=== PATIENT | male | born 1980 | race Caucasian/White ===

== ENCOUNTER 2017-02-09 21:23 | Emergency (ER) | payer BC, OTHER ==
[2017-02-09 22:42] VITALS: BP 134/89
--- NOTE | 2017-02-09 23:42 | UC ---
Hand/Wrist HPI - HPI Summary HPI Summary: The patient comes in today for: 1. Right little finger injury: Onset: 10 hours ago. Palliative/provocative: Tapping the end of the finger will make the pain worse. It is "twingy" with tapping. Quality: "twingy" Region: whole of the right little finger. Severity: 2/10 Time: Constant. Associated symptoms: Event: He got his little right finger caught in a chain-like fence today at 1:30 PM while trying to pull a student off the fence. Treatment: None. Previous problems: None. * - History Of Current Complaint Chief Complaint: UCUpperExtremity Stated Complaint: RIGHT HAND INJURY Time Seen by Provider: 02/09/17 22:32 Hx Obtained From: Patient - Allergies/Home Medications Allergies/Adverse Reactions: Allergies Allergy/AdvReac Type Severity Reaction Status Date / Time No Known Allergies Allergy Verified 02/09/17 22:42 Home Medications: Home Medications Cetirizine* [ZyrTEC 10 MG TAB*] 10 mg PO DAILY 02/09/17 [History Confirmed 02/09] Fluticasone NASAL * [Flonase *] 2 spray BOTH NARES DAILY 02/09/17 [History Confirmed 02/09/17] PMH/Surg Hx/FS Hx/Imm Hx Previously Healthy: No - Allergies. Endocrine History Of: Denies: Diabetes, Thyroid Disease, Hyperthyroidism, Hypothyroidism, Dyslipidemia Cardiovascular History Of: Denies: Cardiac Disorders, Hypertension, Pacemaker/ICD, Myocardial Infarction , Congestive Heart Failure, Atrial Fibrillation, Deep Vein Thrombosis, Bleeding Disorders Respiratory History Of: Denies: COPD, Asthma, Bronchitis, Pneumonia, Pulmonary Embolism GI/ History Of: Denies: Gastroesophageal Reflux, Ulcer, Gastrointestinal Bleed, Gall Bladder Disease, Kidney Stones, Diverticulitis, Renal Disease, Urosepsis Neurological History Of: Denies: TIA, CVA, Dementia, Seizures, Migraine Psychological History Of: Denies: Anxiety, Depression, Bipolar Disorder, Schizophrenia, Post Traumatic Stress Disorder Cancer History Of: Denies: Lung Cancer, Colorectal Cancer, Breast Cancer, Prostate Cancer, Cervical Cancer Other History Of: Negative For: HIV, Hepatitis B, Hepatitis C, Anticoagulant Therapy - Surgical History Surgical History: Yes Surgery Procedure, Year, and Place: pilonidal cyst 1999 - Family History Known Family History: Positive: Hypertension Negative: Cardiac Disease, Diabetes - Social History Occupation: Employed Full-time Alcohol Use: Occasionally Substance Use Type: None Smoking Status (MU): Never Smoked Tobacco Review of Systems Constitutional: Negative Skin: Negative Eyes: Negative ENT: Negative Respiratory: Negative Cardiovascular: Negative Gastrointestinal: Negative Genitourinary: Negative Motor: Negative All Other Systems Reviewed And Are Negative: Yes Physical Exam Triage Information Reviewed: Yes Appearance: Well-Appearing, No Pain Distress, Well-Nourished Vital Signs: Initial Vital Signs Temp 98.1 F 02/09/17 22:38 Pulse 89 02/09/17 22:38 Resp 17 02/09/17 22:38 BP 134/89 02/09/17 22:38 Pulse Ox 97 02/09/17 22:38 Vital Signs Reviewed: Yes Eyes: Positive: Conjunctiva Clear. Negative: Discharge ENT: Positive: Hearing grossly normal. Negative: Pharyngeal erythema, Nasal congestion, Nasal drainage Dental: Negative: Gross Decay/Caries @, Dental Fracture @ Neck: Positive: Supple, Nontender, No Lymphadenopathy. Negative: Nuchal Rigidity Respiratory: Positive: Chest non-tender, Lungs clear, No respiratory distress, No accessory muscle use. Negative: Crackles, Wheezing Cardiovascular: Positive: RRR, No Murmur Abdomen Description: Positive: Nontender, No Organomegaly, Soft. Negative: Distended, Guarding Musculoskeletal: Positive: Strength Intact, ROM Intact, No Edema, Other: - No edema or ecchymosis or pain to palpation or loss of range of motion. NOrmal exam. Neurological: Positive: Alert, Muscle Tone Normal Psychological: Positive: Age Appropriate Behavior, Consolable Skin: Negative: rashes, breakdown Diagnostics - Radiology No standard instances Xray Interpretation: No Acute Changes Radiology Interpretation Completed By: ED Physician Hand/Wrist Course/Dx - Differential Dx/Diagnosis Provider Diagnoses: Contusion of the right little finger. Discharge - Discharge Plan Condition: Stable Disposition: HOME Patient Education Materials: Contusion in Adults (ED), Finger Sprain (ED) Referrals: Non Staff,Doctor [Primary Care Provider] - 1 Week (Please follow up with your primary care provider in a week to see how your finger is going and how your blood pressure is doing. If you have any problems or worsening, please be seen sooner by us or the ER.) Additional Instructions: Use [id number] pain medications as needed for finger pain.
--- NOTE | 2017-02-10 08:09 | RAD ---
INDICATION: Right hand injury COMPARISON: None TECHNIQUE: AP, lateral, and oblique views were obtained. FINDINGS: The bony structures, joint spaces, and soft tissues are normal for age. IMPRESSION: NO ACUTE BONY FINDINGS.
== END 2017-02-09 23:50 | disposition home or self-care (01) ==
LOC: UCCORT 21:23
DX: S60.051A Contusion of right little finger without damage to nail, initial encounter (principal); W23.0XXA Caught, crushed, jammed, or pinched between moving objects, initial encounter; Y93.9 Activity, unspecified; Y92.9 Unspecified place or not applicable
CPT/HCPCS: 99211; G0463

== ENCOUNTER 2018-04-26 15:01 | Emergency (ER) | payer BC, OTHER ==
[2018-04-26 16:04] VITALS: BP 156/98
[2018-04-26] MEDS ORDERED: Fluorescein Sod TOPICAL 0.6* 0.6 MG TEST OPHTHALMIC ONE (16:07)
[2018-04-26] MEDS ORDERED: Tetracaine 0.5% OPTH.SOL 4 ML* 1 DROP BTL ONE (16:07)
[2018-04-26] MEDS ORDERED: BSS OPTH.SOL* BTL OPHTHALMIC ONE (16:08)
--- NOTE | 2018-04-26 16:08 | UC ---
Eye Complaint HPI - HPI Summary HPI Summary: Patient slept part of the neck last night his contact in. Patient has clear drainage from his right eye and conjunctiva is injected. No visual deficits no pain. - History of Current Complaint Chief Complaint: UCEye Stated Complaint: RIGHT EYE COMPLAINT Time Seen by Provider: 04/26/18 16:06 Hx Obtained From: Patient Onset/Duration: Sudden Onset, Lasting Days - 1 Pain Intensity: 0 Pain Scale Used: 0-10 Numeric Location of Injury: Conjunctiva Associated Signs And Symptoms: Positive: Drainage (Clear) - Allergies/Home Medications Allergies/Adverse Reactions: Allergies Allergy/AdvReac Type Severity Reaction Status Date / Time No Known Allergies Allergy Verified 04/26/18 16:04 PMH/Surg Hx/FS Hx/Imm Hx Previously Healthy: Yes Other History Of: Negative For: HIV, Hepatitis B, Hepatitis C, Anticoagulant Therapy - Surgical History Surgical History: Yes Surgery Procedure, Year, and Place: pilonidal cyst 1999 - Family History Known Family History: Positive: Hypertension Negative: Cardiac Disease, Diabetes - Social History Occupation: Employed Full-time Lives: With Family Alcohol Use: Occasionally Substance Use Type: None Smoking Status (MU): Never Smoked Tobacco Review of Systems Constitutional: Negative Skin: Negative Eyes: Drainage - right, Eye Redness - right ENT: Negative Respiratory: Negative Cardiovascular: Negative Gastrointestinal: Negative Genitourinary: Negative Motor: Negative Neurovascular: Negative Musculoskeletal: Negative Neurological: Negative Psychological: Negative Is Patient Immunocompromised?: No All Other Systems Reviewed And Are Negative: Yes Physical Exam Triage Information Reviewed: Yes Appearance: Well-Appearing, No Pain Distress, Obese Vital Signs: Initial Vital Signs Temp 98.6 F 04/26/18 15:58 Pulse 98 04/26/18 15:58 Resp 18 04/26/18 15:58 BP 156/98 04/26/18 15:58 Pulse Ox 99 04/26/18 15:58 Vital Signs Reviewed: Yes Eye Exam: Normal - left Eyes: Positive: Conjunctiva Inflamed - right, Discharge - clear-right ENT Exam: Normal ENT: Positive: Normal ENT inspection, Hearing grossly normal, Pharynx normal, TMs normal. Negative: Nasal congestion, Trismus, Muffled voice, Hoarse voice, Dental tenderness, Sinus tenderness Dental Exam: Normal Neck exam: Normal Neck: Positive: Supple, Nontender, No Lymphadenopathy Respiratory Exam: Normal Respiratory: Positive: Chest non-tender, Lungs clear, Normal breath sounds, No respiratory distress, No accessory muscle use Cardiovascular Exam: Normal Cardiovascular: Positive: RRR, No Murmur, Pulses Normal Abdominal Exam: Normal Musculoskeletal Exam: Normal Musculoskeletal: Positive: Strength Intact, ROM Intact, No Edema Neurological Exam: Normal Neurological: Positive: Alert, Muscle Tone Normal Psychological Exam: Normal Skin Exam: Normal Re-Evaluation - Re-Evaluation First Eval Change: Unchanged - right eye stained and examined---no evidence of ulceration Eye Complaint Course/Dx - Course Course Of Treatment: cipro eye drops, no contact lens use until cleared by eye care provider, follow blood pressure with pcp - Differential Dx/Diagnosis Provider Diagnoses: od conjuctivitis, elevated blood pressure without dx of hypertension Discharge - Sign-Out/Discharge Documenting (check all that apply): Patient Departure - Discharge Plan Condition: Stable Disposition: HOME Prescriptions: Ciprofloxacin 0.3% OPTH.KISHOR* [Cipro 0.3% Opth*] 1 drop RIGHT EYE Q2H #1 btl Patient Education Materials: How to Use Eye Drops (ED), Hypertension (ED), Conjunctivitis (ED) Referrals: [facility] [Outside] - 2 Weeks (bp recheck) Harris Guajardo MD [Medical Doctor] - 3 Days (or your eye care provider) JEM Bill [Medical Doctor] - 2 Weeks (bp recheck ) Gavi Holguin MD [Medical Doctor] - 3 Days (or your eye care provider) No Primary Care Phys,NOPCP [Primary Care Provider] - Additional Instructions: no contact lens use until clear by eye care provider - Billing Disposition and Condition Condition: STABLE Disposition: Home
== END 2018-04-26 16:35 | disposition home or self-care (01) ==
LOC: UCCORT 15:01
DX: H10.9 Unspecified conjunctivitis (principal); R03.0 Elevated blood-pressure reading, without diagnosis of hypertension
CPT/HCPCS: 99212; A9270-GY; G0463

== ENCOUNTER 2018-07-15 19:07 | Emergency (ER) | payer BC ==
[2018-07-15 19:46] VITALS: BP 149/82
[2018-07-15] MEDS ORDERED: predniSONE TAB* 20 MG PO ONE (20:15)
[2018-07-15] MEDS ORDERED: Albuterol HFA INHALER* 8 gm MDI INH ONE (20:15)
--- NOTE | 2018-07-15 20:16 | UC ---
Respiratory Complaint HPI - HPI Summary HPI Summary: C/O wheezing with coughing or walking since yesterday. Coughing fits. Started URI sx 3 days ago. No fevers or chills. No headache. - History of Current Complaint Chief Complaint: UCRespiratory Stated Complaint: UPPER RESPIRATORY Time Seen by Provider: 07/15/18 20:00 Hx Obtained From: Patient Onset/Duration: Sudden Onset, Lasting Days - 3, Worse Since - last 2 days. Timing: Constant Severity Initially: Mild Severity Currently: Moderate Pain Intensity: 0 Character: Cough: Productive Aggravating Factors: Deep Breaths, Recumbent Position Alleviating Factors: Nothing Associated Signs And Symptoms: Positive: Wheezing, Nasal Congestion, Hoarseness , Sinus Discomfort. Negative: Fever, Chills Related History: Seasonal Allergies - Allergies/Home Medications Allergies/Adverse Reactions: Allergies Allergy/AdvReac Type Severity Reaction Status Date / Time No Known Allergies Allergy Verified 07/15/18 19:41 Home Medications: Home Medications Ascorbic Acid/Multivit-Min [Emergen-C 1,000 mg Packet] 1 lmaar PO ONCE PRN [History Confirmed 07/15/18] [email or web address] ER TAB [Mucinex*] 600 mg PO BID PRN 07/15/18 [History Confirmed ] PMH/Surg Hx/FS Hx/Imm Hx Previously Healthy: Yes Other History Of: Negative For: HIV, Hepatitis B, Hepatitis C, Anticoagulant Therapy - Surgical History Surgical History: Yes Surgery Procedure, Year, and Place: pilonidal cyst 1999 - Family History Known Family History: Positive: Hypertension Negative: Cardiac Disease, Diabetes - Social History Occupation: Employed Full-time Lives: With Family Alcohol Use: Occasionally Substance Use Type: None Smoking Status (MU): Never Smoked Tobacco Review of Systems ENT: Sore Throat, Nasal Discharge, Sinus Congestion Respiratory: Shortness Of Breath, Cough Is Patient Immunocompromised?: No All Other Systems Reviewed And Are Negative: Yes Physical Exam Triage Information Reviewed: Yes Appearance: No Pain Distress, Ill-Appearing, Obese Vital Signs: Initial Vital Signs Temp 97.7 F 07/15/18 19:42 Pulse 88 07/15/18 19:42 Resp 18 07/15/18 19:42 BP 149/82 07/15/18 19:42 Pulse Ox 98 07/15/18 19:42 Vital Signs Reviewed: Yes Eyes: Positive: Conjunctiva Inflamed ENT: Positive: Pharynx normal, Nasal congestion, TMs normal Neck exam: Normal Respiratory: Positive: Wheezing - expiratory wheezing Cardiovascular Exam: Normal Musculoskeletal Exam: Normal Neurological Exam: Normal Psychological Exam: Normal Skin Exam: Normal UC Diagnostic Evaluation - Laboratory O2 Sat by Pulse Oximetry: 98 Respiratory Course/Dx - Differential Dx/Diagnosis Differential Diagnosis/HQI/PQRI: Asthma, Lower Resp Infection, Sinusitis Provider Diagnoses: Acute URI. Acute bronchospasm Discharge - Sign-Out/Discharge Documenting (check all that apply): Patient Departure All imaging exams completed and their final reports reviewed: No Studies - Discharge Plan Condition: Stable Disposition: HOME Prescriptions: predniSONE TAB* [Deltasone 20 MG TAB*] 20 mg PO DAILY #18 tab Patient Education Materials: Upper Respiratory Infection (ED), Wheezing (ED), Prednisone (By mouth), How to Use a Metered-Dose Inhaler and a Spacer (ED) Referrals: No Primary Care Phys,NOPCP [Primary Care Provider] - Additional Instructions: NASAL SPRAYS AND DROPS: Afrin in the PUMP/ MIST bottle (Get generic 12 hours nasal decongestant spray). Tilt your head down and look at the floor while doing a strong sniff with the spray. Decongestant nasal sprays and drops often give dramatic relief from congestion. They are often recommended for patients with sinus infection to assist with sinus drainage. Persons with high blood pressure should consult the doctor before using these nasal sprays. Afrin and Jefry-Synephrine are common uxrk-wou-wcluflz preparations. They should not be used for more than five days, as "rebound" congestion can occur - - the congestion flares as the drug wears off. A way of dealing with this rebound congestion problem is to medicate only one nostril each time, allowing the other nostril to recover from the medicine' s effects. When you no longer need the drug during the day, spray only one nostril each night. This helps you sleep well without severe rebound congestion. Call the doctor if you develop severe headache, palpitations, or chest pain. - Billing Disposition and Condition Condition: STABLE Disposition: Home
== END 2018-07-15 20:37 | disposition home or self-care (01) ==
LOC: UCCORT 19:07
DX: J06.9 Acute upper respiratory infection, unspecified (principal); J98.01 Acute bronchospasm
CPT/HCPCS: 99213; A9270-GY; G0463; J7512

== ENCOUNTER 2019-09-23 16:52 | Emergency (ER) | payer BC ==
[2019-09-23 17:45] VITALS: BP 156/97
--- NOTE | 2019-09-23 17:56 | UC ---
Skin Complaint HPI - HPI Summary HPI Summary: Patient is a 38yo male presenting with c/o "blood blister or boil" beneath L breast. Patient states it began 3 days ago or so and has slowly progressed. Notes tenderness to touch. Denies drainage or bleeding. Does note "feels hard." Denies itching. Denies fever and chills. Denies n/v. States he has a h/o "skin problems" and that "every now and then something pops up." Patient states he scheduled appt with plush brusher but that his insisted he come in today because redness is spreading. - History of Current Complaint Chief Complaint: UCSkin Time Seen by Provider: 09/23/19 17:50 Stated Complaint: SKIN COMPLAINT Hx Obtained From: Patient Onset/Duration: Gradual Onset, Lasting Days Current Severity: Mild Pain Intensity: 2 Pain Scale Used: 0-10 Numeric - Allergy/Home Medications Allergies/Adverse Reactions: Allergies Allergy/AdvReac Type Severity Reaction Status Date / Time No Known Allergies Allergy Verified 09/23/19 17:43 PMH/Surg Hx/FS Hx/Imm Hx Other History Of: Negative For: HIV, Hepatitis B, Hepatitis C, Anticoagulant Therapy - Surgical History Surgical History: Yes Surgery Procedure, Year, and Place: pilonidal cyst 1999 - Family History Known Family History: Positive: Hypertension Negative: Cardiac Disease, Diabetes - Social History Alcohol Use: Occasionally Substance Use Type: None Smoking Status (MU): Never Smoked Tobacco Review of Systems All Other Systems Reviewed And Are Negative: No Constitutional: Positive: Negative. Negative: Fever, Chills Skin: Positive: Other - "boil beneath L breast" red, warm, and tender Respiratory: Positive: Negative Cardiovascular: Positive: Negative Gastrointestinal: Positive: Negative. Negative: Vomiting, Nausea Musculoskeletal: Positive: Negative Neurological: Positive: Negative Physical Exam Triage Information Reviewed: Yes Appearance: Well-Appearing, No Pain Distress, Well-Nourished, Obese Vital Signs: Initial Vital Signs Temp 97.8 F 09/23/19 17:43 Pulse 98 09/23/19 17:43 Resp 18 09/23/19 17:43 BP 156/97 09/23/19 17:43 Pulse Ox 89 09/23/19 17:43 Vital Signs Reviewed: Yes Eyes: Positive: Conjunctiva Clear ENT: Positive: Hearing grossly normal Neck: Positive: Supple Respiratory Exam: Normal Respiratory: Positive: Lungs clear, Normal breath sounds, No respiratory distress Cardiovascular Exam: Normal Cardiovascular: Positive: RRR Neurological: Positive: Alert Psychological: Positive: Age Appropriate Behavior Skin: Positive: Other - large area of erythema and warmth noted beneath L breast and extending above and below. central induration noted. no fluctuance. no drainage or bleeding. mildly tender to palpation Course/Dx - Course Course Of Treatment: Discussed cellulitis with patient. Patient states he has had cellulitis of his leg in the past that he believes was MRSA. Patient received shot of rocephin and outline of redness here. Prescribed bactrim for home to cover possible MRSA. Instructed patient to monitor redness and go to ED if worsening into tomorrow. Also instructed to go to ED with any other new or worsening symptoms. Patient voiced understanding and agreed with treatment plan. - Diagnoses Provider Diagnosis: Cellulitis of chest wall Discharge ED - Sign-Out/Discharge Documenting (check all that apply): Patient Departure All imaging exams completed and their final reports reviewed: No Studies - Discharge Plan Condition: Stable Disposition: HOME Prescriptions: Sulfamethox/Trimethoprim DS* [Bactrim DS 800/160 TAB*] 1 tab PO BID #14 tab Patient Education Materials: Cellulitis (ED) Referrals: Mitchel Carty MD [Primary Care Provider] - If Needed Additional Instructions: As discussed, take bactrim as prescribed for the treatment of your skin infection. You also received a shot of an antibiotic today. The area of infection was outlined here. Monitor the area for increasing redness past the line over the next day. Apply a warm compress 2-3 times daily. Go to the emergency room if you experience fever, increasing redness and warmth to the area, drainage, or nausea and vomiting. - Billing Disposition and Condition Condition: STABLE Disposition: Home
[2019-09-23] MEDS ORDERED: cefTRIAXone VIAL(*) 1,000 MG VIAL IM ONE (18:09)
[2019-09-23] MEDS ORDERED: Lidocaine 1% MPF ** 5 ML VIAL IM ONE (18:10)
== END 2019-09-23 18:55 | disposition home or self-care (01) ==
LOC: UCCORT 16:52
DX: L03.313 Cellulitis of chest wall (principal)
CPT/HCPCS: 96372; 99212; G0463; J0696